=== PATIENT | female | born 1970 | race Caucasian/White ===

== ENCOUNTER 2020-11-25 11:30 | Observation (INO) ==
[2020-11-25] MEDS ORDERED: *HR* Promethazine 25 MG/ML VIAL IM PRN (13:25)
[2020-11-25] MEDS ORDERED: Acetaminophen 325 MG TABLET PO PRN (13:25)
[2020-11-25] MEDS ORDERED: Mag Hydrox/Al Hydrox/Simeth 30 ML UDC PO PRN (13:25)
[2020-11-25] MEDS ORDERED: *HR* HYDROcodone/Acet 5/325 mg TABLET PO PRN (13:25)
[2020-11-25] MEDS ORDERED: Ondansetron 4 MG/2 ML VIAL IVP PRN (13:25)
[2020-11-25] MEDS ORDERED: Naloxone 0.4 MG/ML INJ IVP PRN (13:25)
[2020-11-25] MEDS ORDERED: MOM Conc 10 ML UD.LIQ PO PRN (13:25)
[2020-11-25] MEDS ORDERED: Lidocaine -MPF 2% 2 ML VIAL ONE (14:21)
[2020-11-25 14:51] LABS: % Iron Saturation 11 % (15-50); Iron 47 mcg/dL (50-170); Transferrin 292 mg/dL (203-362)
[2020-11-25] MEDS ORDERED: Dexamethasone 4 MG/ML VIAL ONE (14:52)
[2020-11-25] MEDS ORDERED: *HR* Propofol 200 MG/20 ML VIAL IVP ONE (15:02)
[2020-11-25 15:15] LABS: Ferritin < 8 ng/mL (10-120)
[2020-11-25] MEDS: D5% in 0.45% NACL w KCl 20 MEQ/1,000 ML MLS IVC SCH ×2 (15:55→22:45)
[2020-11-25] MEDS: Pantoprazole 40 MG VIAL IVP SCH (18:00)
[2020-11-25] MEDS ORDERED: traZODone 50 MG TABLET PO PRN (22:17)
[2020-11-25] MEDS ORDERED: Melatonin 3 MG TABLET PO SCH (22:30)
[2020-11-26] MEDS: Pantoprazole 40 MG VIAL IVP SCH (05:05)
[2020-11-26 07:25] LABS: Basophils % 0.4 %; Eosinophils % 0.1 %; Immature Granulocytes % 0.3 % (0-4); Lymphocytes # 1.7 K/mcL (0.6-4.6); Lymphocytes % 17.2 %; Mean Corpuscular HGB Conc 30.6 g/dL (31.6-35.5); Mean Corpuscular Hemoglobin 24.7 pg (28.0-33.3); Mean Corpuscular Volume 80.7 fL (83.0-100.0); Mean Platelet Volume 10.1 fL (9.4-12.4); Monocytes # 0.7 K/mcL (0.0-1.3); Neutrophils # 7.4 K/mcL (1.6-8.9); Platelet Count 391 K/mcL (140-400); Red Blood Count 4.46 M/mcL (3.82-4.97); White Blood Count 9.8 K/mcL (4.3-11.1)
[2020-11-26 07:45] LABS: BUN/Creatinine Ratio 9 (6-26); Blood Urea Nitrogen 6 mg/dL (6-20); Carbon Dioxide 22 mEq/L (23-29); Chloride 109 mEq/L (98-107); Glucose 148 mg/dL (70-105); Magnesium 1.9 mg/dL (1.6-2.6); Osmolality,Calculated 286 (280-300); Phosphorous 3.6 mg/dL (2.7-4.5); Potassium 3.9 mEq/L (3.5-5.1); Sodium 138 mEq/L (136-145); eGFR For African Americans > 60 (> 60); eGFR For Non-African Americans > 60 (> 60)
[2020-11-26 07:50] VITALS: BP 123/66
[2020-11-26] MEDS: D5% in 0.45% NACL w KCl 20 MEQ/1,000 ML MLS IVC SCH (09:30)
== END 2020-11-26 11:12 | disposition home or self-care (01) ==
LOC: EMEROOARM 11:30 → 2ANU 11:30
PROVIDERS: ADMIT Internal Medicine; ATTEND Internal Medicine
PROC: ENDOEDS (2020-11-25 15:30)